=== PATIENT | male | born 1965 | race Caucasian/White ===

== ENCOUNTER → 2018-08-10 | Outpatient (CLI) | payer OTHER | LOC: HYPER 08-05 15:22 | DX: T81.89XA Other complications of procedures, not elsewhere classified, initial encounter (principal); L97.822 Non-pressure chronic ulcer of other part of left lower leg with fat layer exposed; L03.90 Cellulitis, unspecified; L02.416 Cutaneous abscess of left lower limb; M86.8X6 Other osteomyelitis, lower leg; I10 Essential (primary) hypertension; L84 Corns and callosities; M19.90 Unspecified osteoarthritis, unspecified site; M17.9 Osteoarthritis of knee, unspecified; M47.816 Spondylosis without myelopathy or radiculopathy, lumbar region; Z87.891 Personal history of nicotine dependence; Y92.89 Other specified places as the place of occurrence of the external cause; Y83.8 Other surgical procedures as the cause of abnormal reaction of the patient, or of later complication, without mention of misadventure at the time of the procedure ==

== ENCOUNTER → 2018-09-09 | Outpatient (CLI) | payer OTHER | LOC: HYPER 08-24 06:41 | DX: T81.89XD Other complications of procedures, not elsewhere classified, subsequent encounter (principal); L97.822 Non-pressure chronic ulcer of other part of left lower leg with fat layer exposed; L02.416 Cutaneous abscess of left lower limb; I10 Essential (primary) hypertension; M86.8X6 Other osteomyelitis, lower leg; M17.9 Osteoarthritis of knee, unspecified; M47.816 Spondylosis without myelopathy or radiculopathy, lumbar region; Z87.891 Personal history of nicotine dependence; Z89.612 Acquired absence of left leg above knee; Y83.8 Other surgical procedures as the cause of abnormal reaction of the patient, or of later complication, without mention of misadventure at the time of the procedure ==

== ENCOUNTER → 2019-04-28 | Outpatient (CLI) | payer OTHER | LOC: HYPER 09:24 | DX: T26.01XA Burn of right eyelid and periocular area, initial encounter (principal); T26.02XA Burn of left eyelid and periocular area, initial encounter; T20.41 Corrosion of unspecified degree of ear [any part, except ear drum]; T31.0 Burns involving less than 10% of body surface; T65.891A Toxic effect of other specified substances, accidental (unintentional), initial encounter; I10 Essential (primary) hypertension; M47.816 Spondylosis without myelopathy or radiculopathy, lumbar region; M17.9 Osteoarthritis of knee, unspecified; M19.90 Unspecified osteoarthritis, unspecified site; M86.8X6 Other osteomyelitis, lower leg; Z96.642 Presence of left artificial hip joint; Z87.891 Personal history of nicotine dependence; Y92.85 Railroad track as the place of occurrence of the external cause; Y99.0 Civilian activity done for income or pay; Y92.89 Other specified places as the place of occurrence of the external cause ==

== ENCOUNTER → 2019-06-09 | Outpatient (CLI) | payer OTHER | LOC: HYPER 08:51 | DX: T26.01XD Burn of right eyelid and periocular area, subsequent encounter (principal); T26 Burn and corrosion confined to eye and adnexa; T20.41 Corrosion of unspecified degree of ear [any part, except ear drum]; T20.07XA Burn of unspecified degree of neck, initial encounter; T31.0 Burns involving less than 10% of body surface; I10 Essential (primary) hypertension; M86.8X8 Other osteomyelitis, other site; M47.816 Spondylosis without myelopathy or radiculopathy, lumbar region; M17.9 Osteoarthritis of knee, unspecified; Z87.891 Personal history of nicotine dependence; X08.8XXA Exposure to other specified smoke, fire and flames, initial encounter; Y93.89 Activity, other specified; Y92.89 Other specified places as the place of occurrence of the external cause; Y99.8 Other external cause status ==

== ENCOUNTER → 2019-07-05 | Outpatient (CLI) | payer OTHER | LOC: HYPER 12:22 | DX: T26.01XD Burn of right eyelid and periocular area, subsequent encounter (principal); T26 Burn and corrosion confined to eye and adnexa; T20.41 Corrosion of unspecified degree of ear [any part, except ear drum]; T20.07XD Burn of unspecified degree of neck, subsequent encounter; T22.00XD Burn of unspecified degree of shoulder and upper limb, except wrist and hand, unspecified site, subsequent encounter; T65.891D Toxic effect of other specified substances, accidental (unintentional), subsequent encounter; T31.0 Burns involving less than 10% of body surface; M86.9 Osteomyelitis, unspecified; I10 Essential (primary) hypertension; M47.816 Spondylosis without myelopathy or radiculopathy, lumbar region; M17.9 Osteoarthritis of knee, unspecified; Z87.891 Personal history of nicotine dependence ==

== ENCOUNTER → 2019-09-27 | Outpatient (CLI) | payer OTHER | LOC: HYPER 08:04 | PROVIDERS: ATTEND Emergency Medicine | DX: T26.01XD Burn of right eyelid and periocular area, subsequent encounter (principal); T26 Burn and corrosion confined to eye and adnexa; T20.41 Corrosion of unspecified degree of ear [any part, except ear drum]; T20.07XD Burn of unspecified degree of neck, subsequent encounter; T31.0 Burns involving less than 10% of body surface; I10 Essential (primary) hypertension; M86.8X8 Other osteomyelitis, other site; M19.90 Unspecified osteoarthritis, unspecified site; M47.816 Spondylosis without myelopathy or radiculopathy, lumbar region; M17.9 Osteoarthritis of knee, unspecified; Z87.891 Personal history of nicotine dependence; Z89.612 Acquired absence of left leg above knee; X08.8XXD Exposure to other specified smoke, fire and flames, subsequent encounter ==